=== PATIENT | female | born 1970 | race Two or more races ===

== ENCOUNTER 2017-04-26 16:44 | Emergency (ER) | payer OTHER ==
--- NOTE | ~2017-04-26 | CR173 ---
[facility] A Service of [facility] & [facility] RADIOLOGY TEXT RESULTS PATIENT: MAYUR JUAREZ LOCATION: CFTX : 74 UNIT #: [id number] AGE: [address]: Abril Valdovinos APRN SEX: F ORDER DR: [id number] [facility] [address] [place], [place] [address] [id number] E MR#: [id number] Acc #: [id number] NAME: MAYUR JUAREZ : 1970 SEX: F STUDY DATE/TIME: 04/26/2017 18:31 UNIT: [facility] ROOM: STUDY DESCRIPTION: CR Knee 3 Views Rt Attending Physician: Abril Valdovinos A.P.R.N. Ordering Physician: Ed Ceferino Monet M.D. Primary Care Physician: No Primary Care Physician MEDICAL IMAGING REPORT This report is preliminary unless electronic signature is present EXAM Right knee series, 04/26/2017. HISTORY Pain. Knee pain bilaterally. Radiates proximal on the lateral aspect of the upper leg, began yesterday. FINDINGS AP lateral and sunrise views of the right knee are presented. No fracture or malalignment. The patellofemoral joint space shows mild to moderate narrowing more pronounced laterally than medially. There is no acute appearing soft tissue abnormality. No joint effusion. Dictated by... Rajat Farias M.D. THIS IS AN ELECTRONICALLY VERIFIED REPORT Rajat Farias M.D. at 04/28/2017 2:44 PM PEARL/chad TD: 04/27/2017 12:59 JOB #: [id number] MEDICAL IMAGING REPORT Page 1 of 1 COPY
--- NOTE | ~2017-04-26 | CR172 ---
[facility] A Service of [facility] & [facility] RADIOLOGY TEXT RESULTS PATIENT: MAYUR JUAREZ LOCATION: CFTX : 74 UNIT #: [id number] AGE: [address]: Abril Valdovinos APRN SEX: F ORDER DR: [id number] [facility] [address] [place], [place] [address] [id number] E MR#: [id number] Acc #: [id number] NAME: MAYUR JUAREZ : 1970 SEX: F STUDY DATE/TIME: 04/26/2017 18:36 UNIT: [facility] ROOM: STUDY DESCRIPTION: CR Knee 3 Views Lt Attending Physician: Abril Valdovinos A.P.R.N. Ordering Physician: Ed Ceferino Monet M.D. Primary Care Physician: No Primary Care Physician MEDICAL IMAGING REPORT This report is preliminary unless electronic signature is present EXAM Left knee series of 04/26/2017. HISTORY Knee pain bilaterally. Radiates proximally on the lateral aspect of the upper leg. Began yesterday. TECHNIQUE AP, lateral, sunrise views left knee presented. FINDINGS No fracture or malalignment. There is mild narrowing patellofemoral joint space compartment. Other joint spaces intact. There is no joint effusion. No acute-appearing soft tissue abnormality. Dictated by... Rajat Farias M.D. THIS IS AN ELECTRONICALLY VERIFIED REPORT Rajat Farias M.D. at 04/28/2017 2:44 PM PEARL/brandee TD: 04/27/2017 12:59 JOB #: [id number] MEDICAL IMAGING REPORT Page 1 of 1 COPY
[2017-04-26 18:24] LABS: BASOPHIL% 0.4 % (0-2.5); EOSINOPHIL# 0.3 X10e3 (0-0.7); EOSINOPHIL% 5.3 % (0.0-7.0); HEMATOCRIT 35.2 % (35.0-45.0); HEMOGLOBIN 11.7 gm/dL (12.0-16.0); LYMPHOCYTE# 1.9 X10e3 (1.0-3.5); LYMPHOCYTE% 39.3 % (17.0-45.0); MEAN CELL VOLUME 86.6 FL (83-96); MEAN CORPUSCULAR HEMOGLOBIN 28.7 PG (28-34); MEAN CORPUSCULAR HGB CONC 33.2 g/dL (30-36); MEAN PLATELET VOLUME 9.5 FL (6.5-11.5); MONOCYTE# 0.4 X10e3 (0-1.0); MONOCYTE% 8.3 % (3.0-12.0); NEUTROPHIL# 2.3 X10e3 (1.5-7.1); NEUTROPHIL% 46.7 % (40-75); PLATELET COUNT 160 X10e3 (140-420); RED BLOOD COUNT 4.06 X10e (3.90-5.30); RED CELL DISTRIBUTION WIDTH 14.8 % (11.0-15.5); WHITE BLOOD COUNT 4.9 X10e3 (4.0-10.5)
[2017-04-26 18:25] LABS: DIFF IND NO
[2017-04-26 18:47] LABS: ALBUMIN SERUM 3.8 g/dL (3.5-5.0); BILIRUBIN, DIRECT 0.1 mg/dL (0.0-0.2); BILIRUBIN,INDIRECT 0.4 mg/dL (0.0-0.9); BILIRUBIN,TOTAL 0.5 mg/dL (0.2-2.0); BUN/CREATININE RATIO 11.42; CALCIUM SERUM 8.6 mg/dL (8.4-10.2); CREATININE SERUM 0.7 mg/dL (0.6-1.4); GLOM FILT RATE Estimated 105.4 mL/min (>60); POTASSIUM 3.4 mmol/L (3.5-5.1); PROTEIN TOTAL SERUM 6.7 g/dL (6.0-8.3)
== END 2017-04-26 19:20 | disposition home or self-care (01) ==
LOC: CED 16:44 → CFTX 16:44
PROVIDERS: Nurse Practitioner
DX: B34.9 Viral infection, unspecified (principal); M25.561 Pain in right knee; M25.562 Pain in left knee
CPT/HCPCS: 36415; 73562; 80048; 80076; 84703; 85025; 86308; 87651; 99283